=== PATIENT | female | born 1955 | race Hispanic/Latino ===

== ENCOUNTER → 2018-01-28 | Day surgery (SDC) | payer OTHER ==
[2018-01-21 15:19] LABS: BLOOD UREA NITROGEN 18 mg/dL (7-26); BUN/CREATININE RATIO 24 (6-25); CALCIUM 9.9 mg/dL (8.4-10.2); CHLORIDE 103 mmol/L (98-107); CREATININE, SERUM 0.75 mg/dL (0.57-1.11); EST GLOMERULAR FILTRATION RATE > 60 ML/MIN (60-); GLUCOSE 86 mg/dL (74-118); SODIUM 139 mmol/L (136-145)
[2018-01-21 15:50] LABS: CARBON DIOXIDE 28 mmol/L (22-29)
[~2018-01-28] MED LIST: ARTHROTEC EC 71 EACH PO; BAYER81 MG PO; CALCIUM CARBON500 MG PO; CEFAZOLIN SOD 1 GM VIAL ONE; DEXAMETHASONE SOD PHOS INJ 4 MG/ML VIAL ONE; FENTANYL CITRATE/PF 100MCG/2 ML INJ ONE; LIDOCAINE HCL 2% LOCAL INJ 5 ML SDV VIAL INJ ONE; LISINOPRIL-HCT1 EAC3 PO; MIDAZOLAM HCL 2 MG/2 ML VIAL ONE; MUPIROCIN 2% OINT 22 GM TUBE ONE; ONDANSETRON HCL INJ 2 MG/ML VIAL ONE; OSTEO BI-FLEX1 EACH PO; PREVACID; PROPOFOL IV EMULSION 10 MG/ML 20 ML VIAL ONE; SEVOFLURANE INHAL SOLN 250 ML PEN BTL ONE; VITAMIN D5000 UNIT PO; Z.0.ONE-A-DAY WOME1; Z.0.SIMVASTATIN40 MG PO; ZYRTEC10 M3 PO; [UNRECOGNIZED DRUG - OTHER]; [UNRECOGNIZED DRUG - OTHER]
[2018-01-28 10:36] VITALS: BP 128/79
--- NOTE | 2018-01-28 11:23 | Operative Report ---
DATE OF PROCEDURE: January 28, 2018 RESIDENTIAL AIR SEALING TECHNICIAN: Johnathon Hernandez PA-C The patient was brought to the operating room for induction of anesthesia. Throughout this case, my PA's assistance was necessary for retraction of soft tissue and positioning of the extremity. This allows for efficient and technically successful execution of the operation and is considered medically necessary. PREOPERATIVE DIAGNOSES 1. Left carpal tunnel syndrome. 2. Left trigger thumb. POSTOPERATIVE DIAGNOSES 1. Left carpal tunnel syndrome. 2. Left trigger thumb. PROCEDURES 1. Left endoscopic carpal tunnel release. 2. Left trigger thumb release. INDICATIONS: The patient is a 62-year-old woman who has clinic signs and symptoms consistent with left carpal tunnel syndrome and left trigger thumb. She has failed conservative management and would like to proceed with surgical intervention. The risks and benefits of a left endoscopic versus open carpal tunnel release and left trigger thumb release have been explained. She states she understands and wishes to proceed. DESCRIPTION OF PROCEDURE: The patient was brought to the operating room and placed under general anesthetic. Her left upper extremity was prepped and draped in a sterile manner. A preoperative time out was performed. The extremity was exsanguinated, and a proximal tourniquet was inflated to 250 mmHg. Initial attention was directed towards the carpal tunnel. An incision was made over the flexion crease of the left wrist. The palmaris longus was retracted to the radial side of the wound. The flexor retinaculum was elevated and incised. An elevator was used to tease the tenosynovium off of the undersurface of the transverse carpal ligament. Dilators were placed. The hook of the hamate was palpated. The MicroAire endoscope was then placed into the carpal tunnel. The undersurface of the transverse carpal ligament could be cleanly visualized without evidence of soft-tissue interposition. The knife was deployed, and the ligament was cut. Full-thickness release was noted. The proximal retinaculum was incised under direct visualization using a pair of blunt Metzenbaum scissors. The incision was then closed with 2 interrupted nylon stitches. A sterile bandage was applied. Attention was then directed towards the thumb. An incision was made at the base of the thumb. The A1 anibal was carefully exposed. This was completely released with a 15-blade surgical knife. The tendon was retracted from the wound. Some intratendinous adhesions were released. The thumb was noted to flex and extend without any further stenosing tenosynovitis. The wound was irrigated and closed with 2 interrupted nylon stitches. A sterile bandage was applied. The patient was then extubated and transported to the recovery room in stable condition. There was no blood loss, and all needle and sponge counts were correct. Job#: [id number]
--- OUTSIDE RECORDS SUMMARY | 2018-01-29 14:13 | XMS REPORT ---
Author Author Sangita Joseph Organization [employer] Address Unknown Phone Unavailable Care Team Providers Care Epic Cupid Analyst Name Role Phone Sangita Joseph CP Unavailable Allergies, Adverse Reactions, Alerts Substance Reaction Event Type N.K.D.A. Info Not Available Non Drug Allergy Problems Problem Type Condition Code Onset Dates Condition Status Assessment ESR raised R70.0 Active Assessment Vitamin D deficiency E55.9 Active Problem Osteoarthritis of knees, bilateral M17.0 Active Assessment Pain in right knee M25.561 Active Problem Vitamin D deficiency E55.9 Active Assessment Counseling NOS Z71.9 Active Assessment Osteopenia M85.80 Active Assessment Pain in left knee M25.562 Active Assessment Osteoarthritis of knees, bilateral M17.0 Active Medications Medication Code System Code Instructions Start Date End Date Status Dosage Aspirin ND 61047768127 81 MG Orally Once a day Active 1 tablet Calcium NDC 0 Oral Active [address] [facility] [address]-30 Orally Once a day Active 1 tab(s) Diclofenac-Misoprostol ND 80561639322 75-0.2 MG Orally Twice a day prn with food Active 1 tablet Lisinopril-Hydrochlorothiazide ND 30744720355 20-25 MG Orally Once a day Active 1 tablet Prevacid 24HR ND 45542155770 15 MG Orally Once a day PRN Active 1 capsule Multivitamin/Minerals NDC 0 QD Active 1 Tab Vitamin D (Ergocalciferol) [facility] 93196208912 15808 UNIT Orally Once weekly Active 1 capsule Simvastatin ND 85775524493 40 MG Orally Once a day Active 1 tablet in the evening Vital Signs Date/Time: August 27, 2017 Height 61 in Blood Pressure Diastolic 58 mm Hg Blood Pressure Systolic 94 mm Hg Weight 243.6 lbs Results No Known Results Summary Purpose [employer] Submission
--- OUTSIDE RECORDS SUMMARY | 2018-01-29 14:13 | XMS REPORT ---
Author Author Sangita Joseph Organization [employer] Address Unknown Phone Unavailable Care Team Providers Care Tech Brazer Tester Name Role Phone Jake Sangita CP Unavailable Allergies, Adverse Reactions, Alerts Substance [...] Instructions Start Date End Date Status Dosage Simvastatin [facility] [address]-04 40 MG Orally Once a day Active 1 tablet in the evening Vitamin D (Ergocalciferol) [facility] 37750156822 12314 UNIT Orally Once weekly Active 1 capsule Prevacid 24HR [facility] [address]-81 15 MG Orally Once a day PRN Active 1 capsule Multivitamin/Minerals NDC 0 QD Active 1 Tab Lisinopril-Hydrochlorothiazide [facility] [address]-87 20-25 MG Orally Once a day Active 1 tablet Diclofenac-Misoprostol [facility] [address]-76 75-0.2 MG Orally Twice a day prn with food Feb 24, 2017 Active 1 tablet Aspirin [facility] [address]-18 81 MG Orally Once a day Active 1 tablet Bioflex [facility] [address]-49 Orally Once a day Active 1 tab(s) Calcium NDC 0 Oral Active 1 tab Diclofenac Sodium [facility] [address]-43 1 % Transdermal Inactive not defined Vital Signs Date/Time: August 28, 2016 Height 61 in Blood Pressure Diastolic 79 mm Hg Blood Pressure Systolic 127 mm Hg Weight 243 lbs Results No Known Results Summary Purpose [employer] Submission
--- OUTSIDE RECORDS SUMMARY | 2018-01-29 14:13 | XMS REPORT ---
Author Author Sangita Joseph Organization [employer] Address Unknown Phone Unavailable Care Team Providers Care Assessment Rn Name Role Phone Sangita Joseph CP Unavailable Allergies, Adverse Reactions, Alerts Substance Reaction Event Type N.K.D.A. Info Not Available Non Drug Allergy Encounters Encounter Location Date Follow Up Lab & MRI Results [facility] November 01, 2015 Osteoarthritis [facility] September 20, 2015 Mri/Dexa Order [facility] September 24, 2015 Synvisc one-Pending Denial [facility] October 11, 2015 Problems Problem Type Condition ICD-9 Code Onset Dates Condition Status Assessment Pain in right knee M25.561 Active Assessment Pain in left knee M25.562 Active Problem Osteoarthritis of knees, bilateral M17.0 Active Assessment Osteopenia M85.80 Active Assessment ESR raised R70.0 Active Assessment Osteoarthritis of knees, bilateral M17.0 Active Assessment Counseling NOS Z71.9 Active Medications Medication Code System Code Instructions Start Date End Date Status Dosage Diclofenac-Misoprostol [facility] [address]-92 75-0.2 MG Orally Twice a day prn with food September 20, 2015 Active 1 tablet Lisinopril-Hydrochlorothiazide [facility] [address]-57 20-25 MG Orally Once a day Active 1 tablet Diclofenac Sodium [facility] [address]-66 1 % Transdermal Active Unknown Calcium Unknown 0 Oral Active 1 tab Simvastatin [facility] [address]-90 40 MG Orally Once a day Active 1 tablet in the evening Aspirin [facility] [address]-73 81 MG Orally Once a day Active 1 tablet Lidocaine [facility] [address]-27 4 % Externally Active Unknown Prevacid 24HR [facility] [address]-89 15 MG Orally Once a day PRN Active 1 capsule RelyyT [facility] [address]-21 0.025-5 % Externally Active Unknown Diclofenac-Misoprostol [facility] [address]-19 75-0.2 MG Orally Twice a day prn with food Active 1 tablet Multivitamin/Minerals Unknown 0 QD Active 1 Tab Social History Social History Element Qualifiers Date Reported Smoking status: . Are you a: Never Smoker November 01, 2015 Vital Signs Date/Time: November 01, 2015 Height 61 in Blood Pressure Diastolic 82 mm Hg Blood Pressure Systolic 126 mm Hg Weight 246 lbs Summary Purpose [employer] Submission
--- OUTSIDE RECORDS SUMMARY | 2018-01-29 14:13 | XMS REPORT ---
Author Author Sangita Joseph Organization [employer] Address Unknown Phone Unavailable Care Team Providers Care Solid Plasterer Name Role Phone Sangita Joseph CP Unavailable Allergies, Adverse Reactions, Alerts Substance Reaction Event Type N.K.D.A. Info Not Available Non Drug Allergy Encounters Encounter Location Date Follow Up Lab & MRI Results [facility] November 01, 2015 New Vit D [facility] November 04, 2015 Vit D refill [facility] Feb 24, 2016 Follow up 4 Month [facility] Feb 28, 2016 Osteoarthritis [facility] September 20, 2015 Mri/Dexa Order [facility] September 24, 2015 Synvisc one-Pending Denial [facility] October 11, 2015 Problems Problem Type Condition ICD-9 Code Onset Dates Condition Status Assessment ESR [...] Instructions Start Date End Date Status Dosage Lisinopril-Hydrochlorothiazide [facility] [address]-62 20-25 MG Orally Once a day Active 1 tablet Lidocaine [facility] [address]-05 4 % Externally Active Unknown Prevacid 24HR [facility] [address]-96 15 MG Orally Once a day PRN Active 1 capsule Bioflex [facility] [address]-43 Orally Once a day Active 1 tab(s) Simvastatin [facility] [address]-12 40 MG Orally Once a day Active 1 tablet in the evening Calcium Unknown 0 Oral Active 1 tab Diclofenac-Misoprostol [facility] [address]-34 75-0.2 MG Orally Twice a day prn with food August 26, 2016 Active 1 tablet Aspirin [facility] [address]-43 81 MG Orally Once a day Active 1 tablet [place] [facility] [address]-45 2 % Transdermal Twice a day Feb 28, 2016 Mar 29, 2016 Active 2 applications to affected area Multivitamin/Minerals Unknown 0 QD Active 1 Tab RelyyT [facility] [address]-87 0.025-5 % Externally Active Unknown Vitamin D (Ergocalciferol) [facility] 36886372974 20241 UNIT Orally Once weekly Active 1 capsule Diclofenac Sodium [facility] [address]-46 1 % Transdermal Active Unknown Social History Social History Element Qualifiers Date Reported Smoking status: . Are you a: Never Smoker Feb 28, 2016 Vital Signs Date/Time: Feb 28, 2016 Height 61 in Blood Pressure Diastolic 81 mm Hg Blood Pressure Systolic 132 mm Hg Weight 245.4 lbs Summary Purpose eClinicalWorks Submission
--- OUTSIDE RECORDS SUMMARY | 2018-01-29 14:13 | XMS REPORT ---
Author Author Sangita Joseph Organization [employer] Address Unknown Phone Unavailable Care Team Providers Care Equip Maint Eng Name Role Phone Sangita Joseph CP Unavailable [...] Start Date End Date Status Dosage Simvastatin ND 49283569142 40 MG Orally Once a day Active 1 tablet in the evening Vitamin D (Ergocalciferol) [facility] 12097944244 02569 UNIT Orally Once weekly Active 1 capsule Multivitamin/Minerals NDC 0 QD Active 1 Tab Aspirin ND 80117965333 81 MG Orally Once a day Active 1 tablet Diclofenac-Misoprostol ND 01535436433 75-0.2 MG Orally Twice a day prn with food Active 1 tablet Bioflex [facility] [address]-89 Orally Once a day Active 1 tab(s) Calcium NDC 0 Oral Active 1 tab Prevacid 24HR ND 48601553956 15 MG Orally Once a day PRN Active 1 capsule Lisinopril-Hydrochlorothiazide ND 88088260924 20-25 MG Orally Once a day Active 1 tablet Vital Signs Date/Time: Feb 26, 2017 Height 61 in Blood Pressure Diastolic 81 mm Hg Blood Pressure Systolic 137 mm Hg Weight 245 lbs Results No Known Results Summary Purpose eClinicalWorks Submission
--- OUTSIDE RECORDS SUMMARY | 2018-01-29 14:13 | XMS REPORT ---
Author Author Sangita Joseph Organization [employer] Address Unknown Phone Unavailable Care Team Providers Care Dust Collector Attendant Name Role Phone Lalithasabino Sangita CP Unavailable Allergies, Adverse Reactions, Alerts Substance Reaction Event Type N.K.D.A. Info Not Available Non Drug Allergy Encounters Encounter Location Date Osteoarthritis [facility] September 20, 2015 Problems Problem Type Condition ICD-9 Code Onset Dates Condition Status Assessment Pain in right knee M25.561 Active Assessment Asymptomatic menopausal state V49.81 Active Problem Osteoarthritis of knees, bilateral M17.0 Active Assessment Counseling NOS Z71.9 Active Assessment Pain in left knee M25.562 Active Assessment Osteoarthritis of knees, bilateral M17.0 Active Medications Medication Code System Code Instructions Start Date End Date Status Dosage Diclofenac Sodium [facility] [address]-20 1 % Transdermal Active Unknown Simvastatin [facility] [address]-12 40 MG Orally Once a day Active 1 tablet in the evening Aspirin [facility] [address]-74 81 MG Orally Once a day Active 1 tablet Lidocaine [facility] [address]-26 4 % Externally Active Unknown Multivitamin/Minerals Unknown 0 QD Active 1 Tab RelyyT [facility] [address]-54 0.025-5 % Externally Active Unknown Diclofenac-Misoprostol [facility] [address]-40 75-0.2 MG Orally Twice a day prn with food September 20, 2015 Active 1 tablet Lisinopril-Hydrochlorothiazide [facility] [address]-58 20-25 MG Orally Once a day Active 1 tablet Prevacid 24HR [facility] [address]-93 15 MG Orally Once a day PRN Active 1 capsule Social History Social History Element Qualifiers Date Reported Smoking status: . Are you a: Never Smoker September 20, 2015 Vital Signs Date/Time: September 20, 2015 Height 61 in Blood Pressure Diastolic 81 mm Hg Blood Pressure Systolic 131 mm Hg Weight 243.0 lbs Summary Purpose eClinicalWorks Submission
--- OUTSIDE RECORDS SUMMARY | 2018-01-29 14:13 | XMS REPORT | Clinical Summary ---
Author Author [facility] Organization [employer] Address Unknown Phone Unavailable Care Team Providers Care Counter Molder Name Role Phone Deanne Zaragoza MD PCP Allergies Not on File Current Medications Not on file Active Problems Not on file Encounters Date Type Specialty Care Team Description 11/26/2017 Consult Weight Management Deanne Zaragoza MD Obesity, unspecified Leah Penn RD obesity severity, unspecified obesity type (Primary Dx) 11/26/2017 Telephone Weight Management Leah Penn RD 10/08/2017 Consult Weight Management Deanne Zaragoza MD Obesity, unspecified Leah Penn RD obesity severity, unspecified obesity type (Primary Dx) 08/20/2017 Consult Weight Management Deanne Zaragoza MD Obesity, unspecified Leah Penn RD obesity severity, unspecified obesity type (Primary Dx) 08/17/2017 Telephone Weight Management Leah Penn RD after 01/27/2017 Social History Tobacco Use Types Packs/Day Years Used Date Never Assessed Sex Assigned at Date Recorded Not on file Last Filed Vital Signs Vital Sign Reading Time Taken Blood Pressure - - Pulse - - Temperature - - Respiratory Rate - - Oxygen Saturation - - Inhaled Oxygen - - Concentration Weight 105 kg (230 lb 9.6 oz) 11/26/2017 12:58 PM CDT Height 154.9 cm (5' 1") 11/26/2017 12:58 PM CDT Body Mass Index 43.57 11/26/2017 12:58 PM CDT Plan of Treatment Health Maintenance Due Date Last Done Comments CERVICAL CANCER SCREENING 12/02/1976 BREAST CANCER SCREENING 12/02/2005 COLON CANCER SCREENING 12/02/2005 SHINGRIX VACCINE (#1) 12/02/2005 ZOSTER VACCINE 2015 INFLUENZA VACCINE 11/14/2017 Results Not on fileafter 01/27/2017 Insurance Payer Benefit Subscriber ID Type Phone Address Plan / Group [employer] OPEN xxxxxxxxxxx H[place]ESS/[place] [address]
--- OUTSIDE RECORDS SUMMARY | 2018-01-29 14:13 | XMS REPORT | Summary of Care ---
Author Organization Unknown Address Unknown Phone Unavailable Encounter HQ Encntr_alias(FIN) [id number] Date(s): 10/12/14 - 10/12/14 [facility] Outpatient Imaging - [id number] [place] [address] [phone] Discharge Disposition: Home Physician Attending: Deanna Blackmon MD Vital Signs No data available for this section Problem List No data available for this section Allergies, Adverse Reactions, Alerts No data available for this section Medications No data available for this section Results No data available for this section Immunizations No data available for this section Procedures No data available for this section Social History No data available for this section Assessment and Plan No data available for this section
--- OUTSIDE RECORDS SUMMARY | 2018-01-29 14:13 | XMS REPORT | Continuity of Care Document ---
Author Author [facility] Interface Address Unknown Phone Unavailable Problems Problem Status Onset Date Classification Date Reported Comments Source Z12.31 - ENCNTR SCREEN MAMMOGRAM FOR MA Active 10/27/2015 [facility] [place] V76.12 - SCREEN MAMMOGRA Active 09/03/2013 [facility] [place] ESR raised Active Diagnosis 08/29/2017 Sangitadelonte Joseph Vitamin D deficiency Active Diagnosis 08/29/2017 Sangiatdelonte Joseph Osteoarthritis of knees, bilateral Active Problem 08/29/2017 Sangita Nasabino Pain in right knee Active Diagnosis 08/29/2017 Sangita Joseph Counseling NOS Active Diagnosis 08/29/2017 Sangitadelonte Joseph Osteopenia Active Diagnosis 08/29/2017 Sangitadelonte Joseph Pain in left knee Active Diagnosis 08/29/2017 Sangitadelonte Joseph Asymptomatic menopausal state Active Diagnosis 09/23/2015 Sangita Liannevern Age-related osteoporosis without current pathological fracture Active Diagnosis 09/28/2015 Sangita Joseph Medications Medication Details Route Status Patient Instructions Ordering Provider Order Date Source Diclofenac-Misoprostol 1 tablet Orally Active 75-0.2 MG Orally Twice a day prn with food [facility] 02/24/2017 Sangita Lianne Diclofenac-Misoprostol 1 tablet Orally Active 75-0.2 MG Orally Twice a day prn with food [facility] 08/26/2016 Sangita Jake Pennsaid 2 applications to affected area Transdermal Active 2 % Transdermal Twice a day [facility] 02/28/2016 Sangita Joseph Vitamin D (Ergocalciferol) 1 capsule Orally Active 22068 UNIT Orally Once weekly [facility] 11/04/2015 Sangita Abdalla Diclofenac-Misoprostol 1 tablet Orally Active 75-0.2 MG Orally Twice a day prn with food [facility] 09/20/2015 Sangita Joseph Simvastatin 1 tablet in the evening Orally Active 40 MG Orally Once a day [facility] Lianne Vitamin D (Ergocalciferol) 1 capsule Orally Active 36130 UNIT Orally Once weekly [facility] Sangita Abdallam Multivitamin/Minerals 1 Tab NA Active QD Nasabino Sangitadelonte Joseph Aspirin 1 tablet Orally Active 81 MG Orally Once a day [place] Joseph Diclofenac-Misoprostol 1 tablet Orally Active 75-0.2 MG Orally Twice a day prn with food Jake Joseph Bioflex 1 tab(s) Orally Active Orally Once a day Najam Sangita Najavern Calcium 1 tab Oral Active Oral Najam Sangita Najam Prevacid 24HR 1 capsule Orally Active 15 MG Orally Once a day PRN Najam Sangita Nasabino Lisinopril-Hydrochlorothiazide 1 tablet Orally Active 20-25 MG Orally Once a day [place] Sangita Nasabino Simvastatin 1 tablet in the evening Orally Active 40 MG Orally Once a day [place] Sangita Nasabino Prevacid 24HR 1 capsule Orally Active 15 MG Orally Once a day PRN Najam Sangita Nasabino Lisinopril-Hydrochlorothiazide 1 tablet Orally Active 20-25 MG Orally Once a day Nasabino Joseph Aspirin 1 tablet Orally Active 81 MG Orally Once a day Nasabino Joseph Diclofenac Sodium not defined Transdermal Active 1 % Transdermal Najam Sangita Nasabino Lidocaine Unknown Externally Active 4 % Externally Najam Sangita Nasaibno Multivitamin/Minerals 1 Tab NA Active QD Nadesireem Sangita Nasabino RelyyT Unknown Externally Active 0.025-5 % Externally Najam Sangita Najavern Calcium 1 tab Oral Active Oral Nadesireem Sangitadelonte Joseph Diclofenac-Misoprostol 1 tablet Orally Active 75-0.2 MG Orally Twice a day prn with food Jake Joseph Allergies, Adverse Reactions, Alerts Substance Category Reaction Severity Reaction type Status Date Reported Comments Source N.K.D.A. Adverse Reaction Info Not Available Adverse Reaction Active 08/27/2017 Sangita Nasabino Immunizations Immunization Date Given Site Status Last Updated Comments Source Results Order Name Results Value Reference Range Date Interpretation Comments Source Breast Mammo Scrn CHRISTOPHER incl CAD MA Breast Mammo Scrn CHRISTOPHER incl CAD MA BILATERAL DIGITAL SCREENING MAMMOGRAM WITH CAD: 01/20/2017 CLINICAL: /Z12.31. Current study was evaluated with a Computer Aided Detection (CAD) system. COMPARISON:Comparison is made to exams dated: 01/03/2016 mammogram, 10/12/2014 mammogram, 09/13/2013 mammogram, 08/03/2012 mammogram - [facility], 07/17/2011 mammogram, and 05/30/2010 mammogram - [facility]. TECHNIQUE: Mammographic views were obtained using digital acquisition. Current study was also evaluated with a Computer Aided Detection (CAD) system. There are scattered fibroglandular densities in both breasts. FINDINGS: There are benign appearing calcifications in both breasts. There also is a benign appearing density in both breasts. No significant masses, calcifications, or other findings are seen in either breast. There has been no significant interval change. IMPRESSION: BENIGN RECOMMENDATION:There is no mammographic evidence of malignancy. A 1 year screening mammogram is recommended.(01/21/2018) [id number] Tam[facility] Elmore M.D. ms/penrad:01/24/2017 12:44:14 Rug Hooker Hand(s): Reema Carlos [facility] letter sent: BI-RADS 1/2 Mammogram BI-RADS: 2 Benign 01/20/2017 - - Read by: Tamiko Elmore MD Dictated Date/time: 01/24/17 12:44 Electronically Signed by: Tamiko Elmore MD 01/24/17 12:44 [facility]AL [facility] [place] [facility]ammo Screening Christopher MA Digital Mammo Screening Christopher MA - DIGITAL MAMMO SCREENING CHRISTOPHER MA BILATERAL DIGITAL SCREENING MAMMOGRAM WITH CAD: 01/03/2016 CLINICAL: Routine. Current study was evaluated with a Computer Aided Detection (CAD) system. Comparison is made to exams dated: 10/12/2014 mammogram, 09/13/2013 mammogram, 08/03/2012 mammogram - [facility], 07/17/2011 mammogram, 05/30/2010 mammogram and 03/08/2009 mammogram - [facility]. There are scattered fibroglandular densities in both breasts. There are benign bilateral breast masses. There are benign scattered calcifications in both breasts. No significant masses, calcifications, or other findings are seen in either breast. IMPRESSION: BENIGN There is no mammographic evidence of malignancy. A 1 year screening mammogram is recommended. Lashell Millan M.D. rn/:01/03/2016 10:17:49 Rug Hooker Hand: Leanna Deleon RT(R)(M), [facility] This exam was dictated and interpreted by [id number] for ANGIE Christiansen. letter sent: Bilateral Benign Mammogram BI-RADS: 2 Benign 01/03/2016 - - Read by: Lashell Millan MD Dictated Date/time: 01/03/16 10:17 Electronically Signed by: Lashell Millan MD 01/03/16 10:17 FINAL REPORT [facility] [place] Digital Mammo Screening Christopher MA Digital Mammo Screening Christopher MA - DIGITAL MAMMO SCREENING CHRISTOPHER MA BILATERAL DIGITAL SCREENING MAMMOGRAM WITH CAD: 10/12/2014 CLINICAL: Routine. Current study was evaluated with a Computer Aided Detection (CAD) system. Comparison is made to exams dated: 07/17/2011 mammogram - [facility], 08/03/2012 mammogram and 09/13/2013 mammogram - [facility]. The tissue of both breasts is heterogeneously dense, which could obscure detection of small masses. No significant masses, calcifications, or other findings are seen in either breast. There has been no significant interval change. IMPRESSION: BENIGN There is no mammographic evidence of malignancy. A 1 year screening mammogram is recommended. Len Cristina M.D. srp/penrad:10/12/2014 11:09:42 Rug Hooker Hand: Leanna KIDD(R)(M), [facility] This exam was dictated and interpreted by [id number] for ANGIE Blue. letter sent: Normal exam Mammogram BI-RADS: 2 Benign 10/12/2014 - - Read by: Len Cristian MD Dictated Date/time: 10/12/14 11:09 Electronically Signed by: Len Cristina MD 10/12/14 11:09 FINAL REPORT [facility] [place] Digital Mammo Screening Christopher MA Digital Mammo Screening Christopher MA - DIGITAL MAMMO SCREENING CHRISTOPHER MA BILATERAL DIGITAL SCREENING MAMMOGRAM WITH CAD: 09/13/2013 CLINICAL: Screening. Current study was evaluated with a Computer Aided Detection (CAD) system. Comparison is made to exams dated: 12/08/2006 mammogram, 03/08/2009 mammogram, 02/10/2008 mammogram, 05/30/2010 mammogram, 07/17/2011 mammogram - [facility] and 08/03/2012 mammogram - [facility]. There are scattered fibroglandular densities in both breasts. Several benign-appearing noncalcified masses, both breasts, some larger and others smaller, probably cysts. Consider aspiration of any palpable mass, if clinically indicated. Also recommend repeat mammography in one year. No significant masses, calcifications, or other findings are seen in either breast. There has been no significant interval change. IMPRESSION: BENIGN There is no mammographic evidence of malignancy. A screening mammogram in one year is recommended. Dr. Merlyn Terry M.D. ,eoc/penrad:09/15/2013 09:57:45 Rug Hooker Hand: Meeta Blanca RT(R)(M), [facility] This exam was dictated and interpreted by [id number] for ANGIE Blue. letter sent: Normal exam Mammogram BI-RADS: 2 Benign 09/13/2013 - - Read by: Merlyn Sadler DO Dictated Date/time: 09/15/13 09:57 Electronically Signed by: Merlyn Sadler DO 09/15/13 09:57 FINAL REPORT ANGIE Blue Vital Signs Vital Sign Value Date Comments Source Height 61 08/27/2017 Sangita Najam Diastolic (mm Hg) 58 08/27/2017 Sangtia Najam Systolic (mm Hg) 94 08/27/2017 Sangita Najam Weight 243.6 08/27/2017 Sangita Najam Height 61 02/26/2017 Sangita Najam Diastolic (mm Hg) 81 02/26/2017 Sangita Najam Systolic (mm Hg) 137 02/26/2017 Sangita Najam Weight 245 02/26/2017 Sangita Najam Height 61 08/28/2016 Sangita Najam Diastolic (mm Hg) 79 08/28/2016 Sangita Najam Systolic (mm Hg) 127 08/28/2016 Sangita Najam Weight 243 08/28/2016 Sangita Najam Height 61 02/28/2016 Sangita Najam Diastolic (mm Hg) 81 02/28/2016 Sangita Nadesireem Systolic (mm Hg) 132 02/28/2016 Sangita Nasabino Weight 245.4 02/28/2016 Sangita Najam Height 61 11/01/2015 Sangita Najam Diastolic (mm Hg) 82 11/01/2015 Sangita Najam Systolic (mm Hg) 126 11/01/2015 Sangita Najam Weight 246 11/01/2015 Sangita Najam Height 61 09/20/2015 Sangita Najam Diastolic (mm Hg) 81 09/20/2015 Sangita Najam Systolic (mm Hg) 131 09/20/2015 Sangita Nadesireem Weight 243.0 09/20/2015 Sangitadelonte Joseph Encounters Location Location Details Encounter Type Encounter Number Reason For Visit Attending Provider ADM Date DC Date Status Source [facility] [place] [facility] [id number] Ramiro Zaragoza 09/13/2013 09/14/2013 [facility] [place] [facility] [place] [facility] [id number] Deanna Blackmon 10/12/2014 10/13/2014 [facility] [place] [facility] Osteoarthritis [id number] 09/20/2015 09/20/2015 [facility] Osteoarthritis [id number] 09/20/2015 09/20/2015 [facility] Osteoarthritis [id number] 09/20/2015 09/20/2015 [facility] Osteoarthritis [id number] 09/20/2015 09/20/2015 [facility] Osteoarthritis [id number] 09/20/2015 09/20/2015 [facility] Osteoarthritis [id number] 09/20/2015 09/20/2015 [facility] Osteoarthritis [id number] 09/20/2015 09/20/2015 [facility] Osteoarthritis [id number] 09/20/2015 09/20/2015 [facility] Mri/Dexa Order [id number] 09/24/2015 09/24/2015 [facility] Mri/Dexa Order [id number] 09/24/2015 09/24/2015 [facility] Mri/Dexa Order [id number] 09/24/2015 09/24/2015 [facility] Mri/Dexa Order [id number] 09/24/2015 09/24/2015 [facility] Mri/Dexa Order [id number] 09/24/2015 09/24/2015 [facility] Mri/Dexa Order [id number] 09/24/2015 09/24/2015 [facility] Synvisc one- Pending Denial [id number] 10/11/2015 10/11/2015 [facility] Synvisc one- Pending Denial [id number] 10/11/2015 10/11/2015 [facility] Synvisc one- Pending Denial [id number] 10/11/2015 10/11/2015 [facility] Synvisc one- Pending Denial [id number] 10/11/2015 10/11/2015 [facility] Synvisc one- Pending Denial [id number] 10/11/2015 10/11/2015 [facility] Follow Up Lab & MRI Results [id number] 11/01/2015 11/01/2015 [facility] Follow Up Lab & MRI Results [id number] 11/01/2015 11/01/2015 [facility] Follow Up Lab & MRI Results [id number] 11/01/2015 11/01/2015 [facility] Follow Up Lab & MRI Results [id number] 11/01/2015 11/01/2015 [facility] Rheumatology [facility] New Vit D [id number] 11/04/2015 11/04/2015 [facility] Rheumatology [facility] New Vit D [id number] 11/04/2015 11/04/2015 [facility] Rheumatology [facility] New Vit D [id number] 11/04/2015 11/04/2015 [facility] [place] [facility] [id number] Deanna Blackmon 01/03/2016 01/04/2016 [facility] Rheumatology Clinic Vit D refill [id number] 02/24/2016 02/24/2016 [facility] Vit D refill [id number] 02/24/2016 02/24/2016 [facility] Follow up 4 Month [id number] 02/28/2016 02/28/2016 Sangita Joseph [facility] [place] [facility] [id number] Deanne Zaragoza 01/20/2017 01/21/2017 JOHNNY Blue Procedures Procedure Code Date Perfomer Comments Source
--- OUTSIDE RECORDS SUMMARY | 2018-01-29 14:13 | XMS REPORT | Summary of Care ---
Author Author [facility] Outpatient [facility] - [place] [facility] [place] Address Unknown Phone Unavailable Encounter HQ Encntr_alias(FIN) [id number] Date(s): 01/03/16 - 01/03/16 [facility] Outpatient [facility] - [place] [address] [place] [phone] Discharge Disposition: Home or Self Care Attending Physician: Deanna Blackmon MD Vital Signs No data [...]
--- OUTSIDE RECORDS SUMMARY | 2018-01-29 14:13 | XMS REPORT | Summary of Care ---
Author Organization Unknown Address Unknown Phone Unavailable Encounter HQ Encntr_aliceci([facility]) [id number] Date(s): 09/13/13 - 09/13/13 [facility] Outpatient Imaging - [address] [address] Discharge Disposition: Home Physician Attending: Ramiro Zaragoza MD Reason for Visit V76.12 - SCREEN MAMMOGRA Problem List No data available for this section Allergies, Adverse Reactions, Alerts No data available for this section Medications No data available for this section Medications Administered During Your Visit No data available for this section Immunizations No data available for this section
--- OUTSIDE RECORDS SUMMARY | 2018-01-29 14:13 | XMS REPORT ---
Author Author Snagita Joseph Organization [employer] Address Unknown Phone Unavailable Care Team Providers Care Site Auditor Name Role Phone Sangita Joseph CP Unavailable Encounters Encounter Location Date Osteoarthritis [facility] September 20, 2015 Mri/Dexa Order Rheumatology Clinic September 24, 2015 Problems Problem Type Condition ICD-9 Code Onset Dates Condition Status Assessment Osteoarthritis of knees, bilateral M17.0 Active Assessment Age-related osteoporosis without current pathological fracture M81.0 Active Problem Osteoarthritis of knees, bilateral M17.0 Active Social History Social History Element Qualifiers Date Reported Smoking status: . Are you a: Never Smoker September 20, 2015 Summary Purpose [employer] Submission
--- OUTSIDE RECORDS SUMMARY | 2018-01-29 14:13 | XMS REPORT ---
Author Author Sangita Joseph Organization [employer] Address Unknown Phone Unavailable Care Team Providers Care Java Golden Gate Developer Name Role Phone Sangita Joseph CP Unavailable Encounters Encounter Location Date Follow Up Lab & MRI Results Rheumatology Clinic November 01, 2015 New Vit D Rhe[facility] November 04, 2015 Vit D refill [facility] Feb 24, 2016 Osteoarthritis [facility] September 20, 2015 Mri/Dexa Order Rheumatology Clinic September 24, 2015 Synvisc one-Pending Denial [facility] October 11, 2015 Problems Problem Type Condition ICD-9 Code Onset Dates Condition Status Problem Osteoarthritis of knees, bilateral M17.0 Active Medications Medication Code System Code Instructions Start Date End Date Status Dosage Vitamin D (Ergocalciferol) MEDISPAN [id number] UNIT Orally Once weekly Active 1 capsule Social History Social History Element Qualifiers Date Reported Smoking status: . Are you a: Never Smoker November 01, 2015 Summary Purpose [employer] Submission
--- OUTSIDE RECORDS SUMMARY | 2018-01-29 14:13 | XMS REPORT ---
Author Author Sangita Joseph Organization [employer] Address Unknown Phone Unavailable Care Team Providers Care Validation Specialist Name Role Phone Sangita Joseph CP Unavailable Encounters Encounter Location Date Follow Up Lab & MRI Results Rheumatology Clinic November 01, 2015 New Vit D Rheumatology Clinic November 04, 2015 Osteoarthritis [facility] September 20, 2015 Mri/Dexa Order Rheumatology Clinic September 24, 2015 Synvisc one-Pending Denial Rheumatology Clinic October 11, 2015 Problems Problem Type Condition ICD-9 Code Onset Dates Condition Status Problem Osteoarthritis of knees, bilateral M17.0 Active Medications Medication Code System Code Instructions Start Date End Date Status Dosage Vitamin D (Ergocalciferol) MEDISPAN [id number] UNIT Orally Once weekly November 04, 2015 Mar 03, 2016 Active 1 capsule Social History Social History Element Qualifiers Date Reported Smoking status: . Are you a: Never Smoker November 01, 2015 Summary Purpose [employer] Submission
--- OUTSIDE RECORDS SUMMARY | 2018-01-29 14:13 | XMS REPORT ---
Author Author Sangita Joseph Organization [employer] Address Unknown Phone Unavailable Care Team Providers Care Language Tutor Name Role Phone Sangita Joseph CP Unavailable [...]
--- OUTSIDE RECORDS SUMMARY | 2018-01-29 14:13 | XMS REPORT | Summary of Care ---
Author Author [facility] Outpatient [facility] [place] [facility] [place] Address Unknown Phone Unavailable Encounter HQ Encntr_aliceci(FIN) [id number] Date(s): 01/20/17 - 01/20/17 [facility] Outpatient Imaging - [place] [address] [place] [phone] Discharge Disposition: Home or Self Care Attending Physician: Deanne Zaragoza MD Vital Signs No data available for [...]
--- OUTSIDE RECORDS SUMMARY | 2018-01-29 14:13 | XMS REPORT ---
Author Author Sangita Joseph Organization [employer] Address Unknown Phone Unavailable Care Team Providers Care Assembly Technician Name Role Phone Lalithasabino Sangita CP Unavailable [...] Date End Date Status Dosage Diclofenac Sodium [facility] [address]-25 1 % Transdermal Active Unknown Simvastatin [facility] [address]-91 40 MG Orally Once a day Active 1 tablet in the evening Aspirin [facility] [address]-44 81 MG Orally Once a day Active 1 tablet Lidocaine [facility] [address]-53 4 % Externally Active Unknown Multivitamin/Minerals Unknown 0 QD Active 1 Tab RelyyT [facility] [address]-54 0.025-5 % Externally Active Unknown Diclofenac-Misoprostol [facility] [address]-63 75-0.2 MG Orally Twice a day prn with food September 20, 2015 Active 1 tablet Lisinopril-Hydrochlorothiazide [facility] [address]-67 20-25 MG Orally Once a day Active 1 tablet Prevacid 24HR [facility] [address]-17 15 MG Orally Once a day PRN [...]
== END | disposition home or self-care (01) ==
LOC: OR 06:35
PROVIDERS: ATTEND Specialist
DX: G56.02 Carpal tunnel syndrome, left upper limb (principal); M65.312 Trigger thumb, left thumb; I10 Essential (primary) hypertension; E78.5 Hyperlipidemia, unspecified; M06.9 Rheumatoid arthritis, unspecified; M19.90 Unspecified osteoarthritis, unspecified site; E66.01 Morbid (severe) obesity due to excess calories; Z01.810 Encounter for preprocedural cardiovascular examination; Z01.812 Encounter for preprocedural laboratory examination; Z79.82 Long term (current) use of aspirin; Z68.38 Body mass index [BMI] 38.0-38.9, adult
CPT/HCPCS: 26055; 29848; 36415; 80048; 93005; J0690; J1100; J2001; J2250; J2405